=== PATIENT | male | born 1955 | race Two or more races ===

== ENCOUNTER 2018-04-17 12:49 | Outpatient (CLI) | payer MEDICARE, OTHER | END 2018-04-17 23:59 | disposition home or self-care (01) | LOC: WOU 12:49 | PROVIDERS: ATTEND Specialist | DX: Z01.818 Encounter for other preprocedural examination (principal); E11.69 Type 2 diabetes mellitus with other specified complication; M86.671 Other chronic osteomyelitis, right ankle and foot; E11.3513 Type 2 diabetes mellitus with proliferative diabetic retinopathy with macular edema, bilateral; E11.52 Type 2 diabetes mellitus with diabetic peripheral angiopathy with gangrene; E11.22 Type 2 diabetes mellitus with diabetic chronic kidney disease; N18.6 End stage renal disease; Z99.2 Dependence on renal dialysis; Z87.891 Personal history of nicotine dependence; Z98.42 Cataract extraction status, left eye; Z98.41 Cataract extraction status, right eye; Z95.1 Presence of aortocoronary bypass graft | CPT/HCPCS: A6402; G0463; Z7610 ==

== ENCOUNTER 2018-05-09 12:30 | Outpatient (CLI) | payer MEDICARE, OTHER | END 2018-05-09 23:59 | disposition home health service (06) | LOC: WOU 12:30 | PROVIDERS: ATTEND Podiatrist Foot & Ankle Surgery | DX: E11.621 Type 2 diabetes mellitus with foot ulcer (principal); L97.514 Non-pressure chronic ulcer of other part of right foot with necrosis of bone; E11.52 Type 2 diabetes mellitus with diabetic peripheral angiopathy with gangrene; L89.613 Pressure ulcer of right heel, stage 3; E11.69 Type 2 diabetes mellitus with other specified complication; M86.671 Other chronic osteomyelitis, right ankle and foot; E11.3513 Type 2 diabetes mellitus with proliferative diabetic retinopathy with macular edema, bilateral; E11.22 Type 2 diabetes mellitus with diabetic chronic kidney disease; N18.6 End stage renal disease; Z99.2 Dependence on renal dialysis; H54.7 Unspecified visual loss; Z89.411 Acquired absence of right great toe; Z87.891 Personal history of nicotine dependence; Z98.42 Cataract extraction status, left eye; Z98.41 Cataract extraction status, right eye; Z95.1 Presence of aortocoronary bypass graft; Z79.4 Long term (current) use of insulin | CPT/HCPCS: 11043; 11046; A6402 ×2; Z7610 ==

== ENCOUNTER 2018-05-23 13:06 | Outpatient (CLI) | payer MEDICARE, OTHER | END 2018-05-23 23:59 | disposition home or self-care (01) | LOC: WOU 13:06 | PROVIDERS: ATTEND Podiatrist Foot & Ankle Surgery | DX: E11.621 Type 2 diabetes mellitus with foot ulcer (principal); L97.513 Non-pressure chronic ulcer of other part of right foot with necrosis of muscle; E11.52 Type 2 diabetes mellitus with diabetic peripheral angiopathy with gangrene; E11.3513 Type 2 diabetes mellitus with proliferative diabetic retinopathy with macular edema, bilateral; H54.7 Unspecified visual loss; Z87.891 Personal history of nicotine dependence; E11.22 Type 2 diabetes mellitus with diabetic chronic kidney disease; N18.6 End stage renal disease; Z99.2 Dependence on renal dialysis; Z79.4 Long term (current) use of insulin; Z79.899 Other long term (current) drug therapy; Z89.421 Acquired absence of other right toe(s); L89.613 Pressure ulcer of right heel, stage 3 | CPT/HCPCS: 11043; A6402; Z7610 ==

== ENCOUNTER 2018-07-18 12:40 | Outpatient (CLI) | payer MEDICARE, OTHER | END 2018-07-18 23:59 | disposition home or self-care (01) | LOC: WOU 12:40 | PROVIDERS: ATTEND Podiatrist Foot & Ankle Surgery | DX: E11.621 Type 2 diabetes mellitus with foot ulcer (principal); L97.513 Non-pressure chronic ulcer of other part of right foot with necrosis of muscle; L89.610 Pressure ulcer of right heel, unstageable; E11.69 Type 2 diabetes mellitus with other specified complication; M86.671 Other chronic osteomyelitis, right ankle and foot; E11.52 Type 2 diabetes mellitus with diabetic peripheral angiopathy with gangrene; E11.22 Type 2 diabetes mellitus with diabetic chronic kidney disease; N18.6 End stage renal disease; Z99.2 Dependence on renal dialysis; Z87.891 Personal history of nicotine dependence; Z89.421 Acquired absence of other right toe(s); Z95.1 Presence of aortocoronary bypass graft; R52 Pain, unspecified; W06.XXXA Fall from bed, initial encounter; Y93.89 Activity, other specified; Y92.531 Health care provider office as the place of occurrence of the external cause; Y99.8 Other external cause status | CPT/HCPCS: A6402; G0463; Z7610 ==

== ENCOUNTER 2018-07-18 13:11 | Emergency (ER) | payer MEDICARE, OTHER ==
[~2018-07-18] VITALS: Ht 157.5 cm; Wt 79.8 kg
--- NOTE | 2018-07-18 13:21 | NUR ---
[facility], PT FELL ON LT SIDE, GURNEY TIPPED OVER UPON TRANSFER BY EMT. PT C/O LT KELLEY, LT RIB/ABD/HIP/LEG PAIN. -KO. RESPIRATIONS EVEN AND UNLABORED, ON MONITOR, NAD NOTED, VSS, AWAITING MD [id number]
[2018-07-18] MEDS ORDERED: IBUPROFEN 600 MG TABLET PO ONE ×2 (15:30→16:07)
--- NOTE | 2018-07-18 16:34 | NUR ---
PT'S FAMILY GIVEN D/C INSTRUCTIONS, VERBALIZES UNDERSTANDING, PT USES [facility], CALLING FOR TRANSPORT
[2018-07-18 16:37] VITALS: BP 121/79
--- NOTE | 2018-07-18 16:58 | NUR ---
CALLED [facility] TO [place]. ETA [phone] PER DISPATCH REF #[id number]
--- NOTE | 2018-07-18 17:06 | NUR ---
[facility] ETA 1830 HOURS
--- NOTE | 2018-07-18 19:18 | NUR ---
PT DC HOME WITH SON, PT TRANSPORTED BY AMBULANCE WITH 2EMTS, VSS, ALL DC INSTRUCTIONS GIVEN TO SON AND AMBULANCE.
== END 2018-07-18 19:19 | disposition home or self-care (01) ==
LOC: ER 13:11
DX: S16.1XXA Strain of muscle, fascia and tendon at neck level, initial encounter (principal); S70.02XA Contusion of left hip, initial encounter; S20.212A Contusion of left front wall of thorax, initial encounter; J90 Pleural effusion, not elsewhere classified; E11.22 Type 2 diabetes mellitus with diabetic chronic kidney disease; N18.6 End stage renal disease; R51 Headache; Z99.2 Dependence on renal dialysis; Z86.73 Personal history of transient ischemic attack (TIA), and cerebral infarction without residual deficits; Z95.1 Presence of aortocoronary bypass graft; W18.39XA Other fall on same level, initial encounter; Y93.89 Activity, other specified; Y92.89 Other specified places as the place of occurrence of the external cause; Y99.8 Other external cause status
CPT/HCPCS: 70450-TC; 71045-TC; 72170-TC; A4606; Z7610